=== PATIENT | female | born 2005 | race Caucasian/White ===

== ENCOUNTER 2024-09-26 02:55 | Emergency (ER) | payer SELFPAY ==
[2024-09-26 03:01] VITALS: BP 117/57; PULSE 109; RESP 15; TEMP 36.1; O2SAT 100
--- NOTE | 2024-09-26 04:49 | PC.NURSE ---
Pt ambulated to desk and stated she was going to go home. Pt ambulated out of ED w/ steady gait.
== END 2024-09-26 05:41 | disposition left against medical advice (07) ==
LOC: ANHED 05:25
DX: Z53.21 Procedure and treatment not carried out due to patient leaving prior to being seen by health care provider (principal)
CPT/HCPCS: 99199